=== PATIENT | female | born 1990 | race Caucasian/White ===

== ENCOUNTER 2018-03-24 19:29 | Emergency (ER) | payer OTHER ==
--- NOTE | 2018-03-24 21:25 | ER Document Report ---
ED General - General Chief Complaint: Leg Swelling Stated Complaint: NUMBNESS/SWELLING IN EXTREMITIES Time Seen by Provider: 03/24/18 20:31 Cannot obtain history due to: Other - Poor historian Notes: Patient is a 27-year-old female without chronic medical problems who presents with multiple complaints. It is somewhat difficult to ascertain exactly what prompted the patient come to the emergency department today as she has variance in her complaints from triage to the time of my assessment. As best as I can gather the patient is concerned that she has been having bilateral lower extremity edema intermittently for the past several weeks to months. She also complains of intermittent paresthesias to her bilateral lower extremities. Nothing seems to improve or worsen the symptoms. She denies any focal weakness , loss of sensation, syncope, headache, fever or constitutional symptoms. She does not have a general doctor. She denies a history of similar symptoms in the past. - Related Data Allergies/Adverse Reactions: Penicillins Allergy (Verified 03/24/18 19:31) Past Medical History - General Information source: Patient - Social History Smoking Status: Never Smoker Frequency of alcohol use: None Drug Abuse: None Lives with: Spouse/Significant other Family History: Reviewed & Not Pertinent Patient has suicidal ideation: No Patient has homicidal ideation: No Renal/ Medical History: Denies: Hx Peritoneal Dialysis Past Surgical History: Reports: Hx Section, Hx Cholecystectomy Review of Systems - Review of Systems Notes: Constitutional: Negative for fever. HENT: Negative for sore throat. Eyes: Negative for visual changes. Cardiovascular: Negative for chest pain. Respiratory: Negative for shortness of breath. Gastrointestinal: Negative for abdominal pain, vomiting or diarrhea. Genitourinary: Negative for dysuria. Musculoskeletal: Positive for bilateral lower extremity swelling Skin: Negative for rash. Neurological: Negative for headaches, weakness or numbness. 10 point ROS negative except as marked above and in HPI. Physical Exam - Vital signs Vitals: Temp Pulse Resp BP Pulse Ox 98.3 F 85 20 120/68 98 03/24/18 19:59 03/24/18 19:59 03/24/18 19:59 03/24/18 19:59 03/24/18 19:59 Notes: PHYSICAL EXAMINATION: GENERAL: Well-appearing, well-nourished and in no acute distress. HEAD: Atraumatic, normocephalic. EYES: Pupils equal round and reactive to light, extraocular movements intact, sclera anicteric, conjunctiva are normal. ENT: nares patent, oropharynx clear without exudates. Moist mucous membranes. NECK: Normal range of motion, supple without lymphadenopathy LUNGS: Breath sounds clear to auscultation bilaterally and equal. No wheezes rales or rhonchi. HEART: Regular rate and rhythm without murmurs ABDOMEN: Soft, nontender, normoactive bowel sounds. No guarding, no rebound. No masses appreciated. EXTREMITIES: Normal range of motion, no pitting or edema. No cyanosis. NEUROLOGICAL: No focal neurological deficits. Moves all extremities spontaneously and on command. PSYCH: Normal mood, normal affect. SKIN: Warm, Dry, normal turgor, no rashes or lesions noted. Course - Re-evaluation Re-evalutation: 03/24/18 21:23 Patient presents with multiple vague complaints that did not appear to be concerning for any acute life-threatening pathology. Vitals are within normal limits at triage and at time of discharge. Physical examination is unremarkable. Patient has tolerated oral intake without difficulty. Patient was not noted to be in distress at any point during their ER visit. No edema present on exam. At this time, based on the reassuring evaluation, I do not suspect an acute NM, pulmonary embolus, aortic dissection, acute intra- abdominal pathology, stroke, or sepsis.Will discharge with return precautions and follow-up recommendations. Verbal discharge instructions given a the bedside and opportunity for questions given. Medication warnings reviewed. Patient is in agreement with this plan and has verbalized understanding of return precautions and the need for primary care follow-up in the next 24-72 hours. 03/25/18 03:37 - Vital Signs Vital signs: Temp Pulse Resp BP Pulse Ox 97.6 F 71 20 114/56 L 100 03/24/18 22:20 03/24/18 22:20 03/24/18 22:20 03/24/18 22:20 03/24/18 22:20 Discharge - Discharge Clinical Impression: Paresthesias, Multiple complaints, Leg swelling Condition: Good Disposition: HOME, SELF-CARE Additional Instructions: Please return to the emergency room immediately if you experience any concerning symptoms including high fevers, severe headache, chest pain, difficulty breathing, abdominal pain, slurred speech, numbness or weakness in your arms or legs, or any other symptom that concerns you.
[2018-03-24 22:28] VITALS: BP 114/56
== END 2018-03-24 22:28 | disposition home or self-care (01) ==
LOC: ER 19:29
DX: R20.2 Paresthesia of skin (principal); M79.89 Other specified soft tissue disorders; Z90.49 Acquired absence of other specified parts of digestive tract; Z88.0 Allergy status to penicillin
CPT/HCPCS: 99283